=== PATIENT | female | born 1940 | race Two or more races ===

== ENCOUNTER 2022-05-14 06:08 | Inpatient (IN) | payer MEDICARE, MEDICAID ==
[2022-05-10 12:45] LABS: Basophils # (auto) 0 10 ^3/uL (0-0.2); Basophils % (auto) 0.7 % (0.0-2.0); Eosinophils # (auto) 0.1 10 ^3/uL (0-0.8); Eosinophils % (auto) 1.6 % (0.0-7.0); Hematocrit 38.1 % (36.0-46.0); Hemoglobin 12.3 g/dL (12.2-16.2); Lymphocytes % (auto) 17.3 % (10.0-50.0); Mean Corpuscular Hemoglobin 28.5 pg (28.0-32.0); Mean Corpuscular Hgb Conc. 32.4 g/dL (32.0-36.0); Mean Corpuscular Volume 87.9 fL (80.0-100.0); Monocytes # (auto) 0.5 10 ^3/uL (0-1.3); Monocytes % (auto) 8.9 % (0.0-12.0); Neutrophils # (auto) 4.3 10 ^3/uL (1.6-8.6); Neutrophils % (auto) 71.5 % (37.0-80.0); Nucleated Red Blood Cells % 0.1 %; Red Blood Cells 4.33 10^6/uL (4.0-5.20); Red Cell Distribution Width 17.6 % (11.8-14.3)
[2022-05-10 12:46] LABS: Urine Bacteria FEW /hpf (None Seen); Urine Blood Negative /uL (Negative); Urine Specific Gravity 1.022 (1.001-1.035); Urine WBC 36 /hpf (0 - 5)
[2022-05-10 12:59] LABS: INR 0.97 (0.9-1.15); Partial Thromboplastin Time 27.1 sec (24.6-33.4)
[2022-05-10 13:07] LABS: Albumin 3.4 g/dL (3.4-5.0); BUN/Creatinine Ratio 24.3; Calcium 9.3 mg/dL (8.5-10.1); Potassium 4.2 mmol/L (3.5-5.1)
[2022-05-10 13:10] LABS: Bilirubin, Total 0.4 mg/dL (0.2-1.0); Total Protein 7.1 g/dL (6.4-8.2)
[~2022-05-14] VITALS: Ht 157.5 cm; Wt 106.1 kg
[~2022-05-14 06:08] MED LIST: CYCL-614 PO; HYDR25TA4 PO; NIFE1TAB31 PO; TRAM50TA2 PO
[2022-05-14] MEDS ORDERED: TRANEXAMIC ACID 20 ML ONE (06:21)
[2022-05-14] MEDS ORDERED: VANCOMYCIN HCL 1000 MG VL ONE (06:25)
[2022-05-14] MEDS ORDERED: DexAMETHasone SOD PHOS 4 MG/1ML SDV INJ ONE (06:44)
[2022-05-14] MEDS ORDERED: BUPIVACAINE 0.5% P/F INJ 10 ML VIAL ONE (06:44)
[2022-05-14] MEDS ORDERED: LIDOCAINE 1% (LOCAL ANESTH.) PF 5ml SDV ONE (06:51)
[2022-05-14] MEDS ORDERED: PROPOFOL 10 MG/ML 20 ML IV ONE (06:51)
[2022-05-14] MEDS ORDERED: KETOROLAC TROMETH 30 MG/ML 1ML VIAL ONE (06:53)
[2022-05-14] MEDS ORDERED: DexAMETHasone SOD PHOS 10MG/1ML VIAL INJ ONE (06:53)
[2022-05-14] MEDS ORDERED: ONDANSETRON HCL 4 MG/2 ML VIAL ONE (06:53)
[2022-05-14] MEDS ORDERED: GLYCOPYRROLATE 0.2 MG/ML 1ML VIAL ONE (06:53)
[2022-05-14] MEDS ORDERED: ceFAZolin 1GM/50ML 100 ML IV ONE (07:11)
[2022-05-14] MEDS ORDERED: diphenhdrAMINE HCL 50 MG/1 ML VL ONE (07:41)
[2022-05-14] MEDS ORDERED: SODIUM CHLORIDE LOCK 10 ML ONE ×2 (07:54→08:20)
[2022-05-14] MEDS ORDERED: ePHEDrine SULFATE 50 MG/ML AMP ONE (07:54)
[2022-05-14] MEDS ORDERED: ROPIVACAINE 0.5% (5MG/ML) 20ML AMPULE IJ ONE (08:06)
[2022-05-14] MEDS ORDERED: EPINEPHrine HCL 1 MG/10 ML SYRG ONE (08:08)
[2022-05-14] MEDS: HCTZ 25 MG TAB PO SCH (10:00)
[2022-05-14] MEDS: NIFEdipine ER 30 MG TAB PO SCH (10:00)
[2022-05-14] MEDS: D5W/LACTATED RINGERS 1,000 ML IV SCH ×2 (11:28→21:57)
[2022-05-14] MEDS: PREGABALIN 25 MG CAP PO SCH ×2 (11:46→21:56)
[2022-05-14] MEDS: ACETAMINOPHEN 325 MG TAB PO SCH ×3 (12:00→23:40)
[2022-05-14] MEDS: KETOROLAC TROMETH 30 MG/ML 1ML VIAL IV SCH ×3 (12:08→23:40)
[2022-05-14 14:30] VITALS: BP 134/57
[2022-05-14 16:00] VITALS: BP 120/55
[2022-05-14] MEDS: ceFAZolin 2 GM in D5W 5% 100 ML IV SCH ×2 (16:51→21:57)
[2022-05-14] MEDS: oxyCODONE HCL 5MG TAB PO PRN (20:27)
[2022-05-14 22:00] VITALS: BP 112/67
[2022-05-15] VITALS (7 sets, daily range): BP systolic 123–148; BP diastolic 50–66
[2022-05-15] MEDS: oxyCODONE HCL 5MG TAB PO PRN ×3 (01:36→20:15)
[2022-05-15] MEDS: ACETAMINOPHEN 325 MG TAB PO SCH ×4 (05:32→23:53)
[2022-05-15] MEDS: KETOROLAC TROMETH 30 MG/ML 1ML VIAL IV SCH ×5 (05:33→23:52)
[2022-05-15] MEDS: D5W/LACTATED RINGERS 1,000 ML IV SCH ×2 (05:37→15:45)
[2022-05-15 07:16] LABS: Basophils # (auto) 0 10 ^3/uL (0-0.2); Basophils % (auto) 0.1 % (0.0-2.0); Eosinophils # (auto) 0 10 ^3/uL (0-0.8); Hematocrit 33.3 % (36.0-46.0); Hemoglobin 10.5 g/dL (12.2-16.2); Lymphocytes # (auto) 0.7 10 ^3/uL (0.4-5.4); Lymphocytes % (auto) 6.3 % (10.0-50.0); Mean Corpuscular Hemoglobin 27.7 pg (28.0-32.0); Mean Corpuscular Hgb Conc. 31.6 g/dL (32.0-36.0); Mean Corpuscular Volume 87.9 fL (80.0-100.0); Monocytes # (auto) 0.8 10 ^3/uL (0-1.3); Monocytes % (auto) 7.2 % (0.0-12.0); Neutrophils # (auto) 9.5 10 ^3/uL (1.6-8.6); Neutrophils % (auto) 86.4 % (37.0-80.0); Red Blood Cells 3.79 10^6/uL (4.0-5.20); Red Cell Distribution Width 17.5 % (11.8-14.3); White Blood Cell 11.1 10^3/uL (4.4-10.8)
[2022-05-15 08:31] LABS: BUN/Creatinine Ratio 25.3; Calcium 8.7 mg/dL (8.5-10.1); Potassium 4.5 mmol/L (3.5-5.1)
[2022-05-15] MEDS: PREGABALIN 25 MG CAP PO SCH ×2 (09:03→21:49)
[2022-05-15] MEDS: ASPirin 81 mg TAB PO SCH ×2 (09:03→21:49)
[2022-05-15] MEDS: HCTZ 25 MG TAB PO SCH (09:03)
[2022-05-15] MEDS: PANTOPRAZOLE 40 MG/10 ML VIAL INJ IV SCH (09:03)
[2022-05-15] MEDS: NIFEdipine ER 30 MG TAB PO SCH (09:03)
[2022-05-16] MEDS: D5W/LACTATED RINGERS 1,000 ML IV SCH ×2 (01:45→12:37)
[2022-05-16] MEDS: oxyCODONE HCL 5MG TAB PO PRN ×2 (04:37→09:56)
[2022-05-16 05:00] VITALS: BP 155/63
[2022-05-16] MEDS: ACETAMINOPHEN 325 MG TAB PO SCH ×2 (05:52→11:41)
[2022-05-16] MEDS: KETOROLAC TROMETH 30 MG/ML 1ML VIAL IV SCH ×2 (05:59→11:40)
[2022-05-16 09:00] VITALS: BP 111/63
[2022-05-16] MEDS: PANTOPRAZOLE 40 MG/10 ML VIAL INJ IV SCH (09:52)
[2022-05-16] MEDS: PREGABALIN 25 MG CAP PO SCH (09:55)
[2022-05-16] MEDS: ASPirin 81 mg TAB PO SCH (09:55)
[2022-05-16] MEDS: HCTZ 25 MG TAB PO SCH (09:56)
[2022-05-16] MEDS: NIFEdipine ER 30 MG TAB PO SCH (09:57)
[2022-05-16 13:00] VITALS: BP 98/78
== END 2022-05-16 15:27 | disposition home or self-care (01) | DRG 470 ==
LOC: SUR 06:08 → TELE 09:36 → TELE-CENTR 14:14
PROVIDERS: ADMIT Orthopaedic Surgery; ATTEND Orthopaedic Surgery
PROC: 0SRC069 Replacement of Right Knee Joint with Oxidized Zirconium on Polyethylene Synthetic Substitute, Cemented, Open Approach (ICD-10-PCS; principal; 2022-05-14 07:26)
DX: M17.11 Unilateral primary osteoarthritis, right knee (principal); Z20.822 Contact with and (suspected) exposure to COVID-19
CPT/HCPCS: 36415; 73562; 80048; 80053; 81001; 85025; 85610; 85730; 86850; 86900; 86901; 97110; 97116; 97163; C9113; G0378; J0690; J1100; J1885; J2405; J2704; J3490; J7060

== ENCOUNTER 2022-07-09 13:43 | Emergency (ER) | payer MEDICARE, MEDICAID ==
[~2022-07-09] VITALS: Ht 157.5 cm; Wt 79.3 kg
[2022-07-09 16:43] VITALS: BP 138/84
[2022-07-09] MEDS ORDERED: ACET1CAP14 PO (17:12)
[2022-07-09] MEDS ORDERED: CYCL-837 PO (17:12)
[2022-07-09] MEDS ORDERED: KETOROLAC TROMETH 30 MG/ML 1ML VIAL IM ONE (17:15)
== END 2022-07-09 17:25 | disposition home or self-care (01) ==
LOC: ER 13:43
DX: S16.1XXA Strain of muscle, fascia and tendon at neck level, initial encounter (principal); S80.01XA Contusion of right knee, initial encounter; S30.0XXA Contusion of lower back and pelvis, initial encounter; Z79.899 Other long term (current) drug therapy; Z88.0 Allergy status to penicillin; Z88.2 Allergy status to sulfonamides; Z88.8 Allergy status to other drugs, medicaments and biological substances; Z91.040 Latex allergy status; W22.8XXA Striking against or struck by other objects, initial encounter; Y93.89 Activity, other specified; Y92.89 Other specified places as the place of occurrence of the external cause; Y99.8 Other external cause status
CPT/HCPCS: 72040; 72100; 73562; 96372; 99284; J1885

== ENCOUNTER 2022-09-02 11:30 | Emergency (ER) | payer MEDICARE, MEDICAID ==
[~2022-09-02] VITALS: Ht 154.9 cm; Wt 79.1 kg
[~2022-09-02 11:30] MED LIST changes: +ACET1CAP14 PO; +CYCL-837 PO
[2022-09-02 12:21] LABS: Basophils # (auto) 0.1 10 ^3/uL (0-0.2); Basophils % (auto) 0.8 % (0.0-2.0); Eosinophils # (auto) 0.1 10 ^3/uL (0-0.8); Eosinophils % (auto) 1.9 % (0.0-7.0); Hematocrit 34.8 % (36.0-46.0); Hemoglobin 11.4 g/dL (12.2-16.2); Lymphocytes # (auto) 1.2 10 ^3/uL (0.4-5.4); Lymphocytes % (auto) 18.7 % (10.0-50.0); Mean Corpuscular Hemoglobin 27.4 pg (28.0-32.0); Mean Corpuscular Hgb Conc. 32.7 g/dL (32.0-36.0); Mean Corpuscular Volume 83.8 fL (80.0-100.0); Monocytes # (auto) 0.5 10 ^3/uL (0-1.3); Monocytes % (auto) 8.4 % (0.0-12.0); Neutrophils # (auto) 4.5 10 ^3/uL (1.6-8.6); Neutrophils % (auto) 70.2 % (37.0-80.0); Nucleated Red Blood Cells % 0.1 %; Red Blood Cells 4.16 10^6/uL (4.0-5.20); Red Cell Distribution Width 16.8 % (11.8-14.3); White Blood Cell 6.5 10^3/uL (4.4-10.8)
[2022-09-02 12:48] LABS: Albumin 3.7 g/dL (3.4-5.0); Calcium 9.5 mg/dL (8.5-10.1); Potassium 4.6 mmol/L (3.5-5.1)
[2022-09-02 12:53] LABS: BUN/Creatinine Ratio 34.2 (10.0-20.0); Bilirubin, Total 0.4 mg/dL (0.2-1.0)
[2022-09-02] MEDS ORDERED: MECL1TAB42 PO (13:35)
[2022-09-02 14:00] LABS: Urine Bacteria FEW /hpf (None Seen); Urine Blood Negative /uL (Negative); Urine Mucus FEW (None Seen); Urine Specific Gravity 1.026 (1.001-1.035); Urine WBC 7 /hpf (0 - 5)
[2022-09-02] MEDS ORDERED: NITR-87 PO (14:52)
[2022-09-02 16:25] VITALS: BP 159/69
== END 2022-09-02 16:29 | disposition home or self-care (01) ==
LOC: ER 11:30
DX: R42 Dizziness and giddiness (principal); N39.0 Urinary tract infection, site not specified; E11.9 Type 2 diabetes mellitus without complications; I10 Essential (primary) hypertension
CPT/HCPCS: 36415; 70450; 80053; 81001; 84484; 85025; 93005